=== PATIENT | male | born 1990 | race Caucasian/White ===

== ENCOUNTER 2017-10-28 11:31 | Emergency (ER) | payer OTHER, SELFPAY ==
[2017-10-28 11:38] VITALS: BP 142/90; PULSE 72; RESP 18; TEMP 36.6; O2SAT 96; BMI 31.4
--- NOTE | 2017-10-28 12:04 | ED.EYEPROB ---
HPI - Eye Problem <RAMANDEEP Wilkes - Last Filed: 10/28/17 19:48> General Chief complaint: Eye Problems Stated complaint: Scratched left eye Time Seen by Provider: 10/28/17 11:51 History of Present Illness HPI Narrative: 26-year-old healthy male here for complaint of discomfort to left eye after accidentally pop and has only with the handle of a pain shot per earlier today. 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 He denies any visual changes. He reports his immunizations are up-to-date. He reports that his eye has been watering since this happened. He denies any other concerns or complaints. MD chief complaint: eye pain Related Data Previous Rx's Medication Instructions Recorded polymyxin B sulf-trimethoprim 1 drop EYE-LEFT QID #10 ml 10/28/17 [Polytrim] erythromycin 0.5 inch EYE-LEFT QHS 10 Days gram 10/29/17 hydrocodone-acetaminophen [[place]] 1 tab PO QHS 7 Days #7 tab 10/29/17 Allergies Allergy/AdvReac Type Severity Reaction Status Date / Time No Known Drug Allergies Allergy Verified 10/28/17 13:37 Review of Systems <RAMANDEEP Wilkes - Last Filed: 10/28/17 19:48> Constitutional Denies chills, Denies fever(s), Denies lethargy and Denies weakness Eyes Reports irritation ENT Ears, Nose, Mouth, and Throat: Denies change in voice, Denies neck pain and Denies sore throat Cardiovascular Denies dyspnea and Denies dyspnea on exertion Respiratory Denies cough, Denies dyspnea, Denies dyspnea on exertion and Denies wheezing Gastrointestinal Gastrointestinal: Denies abdominal pain, Denies change in bowel habits, Denies diarrhea, Denies nausea and Denies vomiting Genitourinary Denies hematuria, Denies flank pain, Denies urinary incontinence and Denies urinary urgency Musculoskeletal Denies neck pain Integumentary/Breasts Denies pruritus, Denies erythema, Denies rash and Denies wounds Neurologic Denies weakness Allergic/Immunologic Denies wheezing Exam <RAMANDEEP Wilkes - Last Filed: 10/28/17 19:48> Initial Vital Signs Initial Vital Signs: Vital Signs Temperature 97.8 F 10/28/17 11:38 Pulse Rate 72 10/28/17 11:38 Respiratory Rate 18 10/28/17 11:38 Blood Pressure 142/90 H 10/28/17 11:38 Pulse Oximetry 96 10/28/17 11:38 Const General: cooperative and well developed Nutritional Appearance: well nourished Orientation: alert, awake, oriented x3 and not confused [facility] Mouth: oral mucosae normal and moist mucous membranes Eyes Cornea: fluorescein used Pupils: PERRL EOM: EOM intact bilaterally Direct ophthalmoscopy: normal light reflex Other: Left eye with injected sclera. Fluorescein exam shows a corneal abrasion across the front of. No foreign bodies. Orbit is intact. Visual acuity intact. Resp Effort & Inspection: normal respiratory effort, able to speak in complete sentences, no respiratory distress and no use of accessory muscles Auscultation: clear to auscultation bilaterally, no rales, no rhonchi and no wheezes Cardio Rate: regular rate Rhythm: regular rhythm Heart Sounds: no click, no gallops, no murmurs and no rubs Skin General: no rashes or lesions noted, No jaundice and No petechiae <Merrill Neville DO - Last Filed: 11/02/17 20:46> Initial Vital Signs Initial Vital Signs: Vital Signs Temperature 97.8 F 10/28/17 11:38 Pulse Rate 72 10/28/17 11:38 Respiratory Rate 18 10/28/17 11:38 Blood Pressure 142/90 H 10/28/17 11:38 Pulse Oximetry 96 10/28/17 11:38 Course <RAMANDEEP Wilkes - Last Filed: 10/28/17 19:48> Orders Ordered: Discontinued Medications Proparacaine HCl (Parcaine 0.5% Ophth Rfida) 1 drops EYE-LEFT NOW ONE Stop: 10/28/17 13:31 Last Admin: 10/28/17 13:32 Dose: 2 drop Vital Signs - 8 hr 10/28/17 12:58 10/28/17 13:17 Temperature 98.4 F Pulse Rate 70 64 Respiratory Rate 14 18 Blood Pressure 124/64 H Blood Pressure [Right Arm] 136/78 H Pulse Oximetry 98 100 <DO Maida Mac Last Filed: 11/02/17 20:46> Orders Ordered: Discontinued Medications Proparacaine HCl (Parcaine 0.5% Ophth Frida) 1 drops EYE-LEFT NOW ONE Stop: 10/28/17 13:31 Last Admin: 10/28/17 13:32 Dose: 2 drop Vital Signs - 8 hr 10/28/17 12:58 10/28/17 13:17 Temperature 98.4 F Pulse Rate 70 64 Respiratory Rate 14 18 Blood Pressure 124/64 H Blood Pressure [Right Arm] 136/78 H Pulse Oximetry 98 100 MDM - Eye Problem <RAMANDEEP Wilkes - Last Filed: 10/28/17 19:48> Medical Records Normal visual acuity. Fluorescein exam shows corneal abrasion. No foreign bodies. Orb is intact. He is placed on Polytrim. [id number] Tylenol Motrin as needed for any discomfort. Follow up primary care provider. Return emergency room for any worsening symptoms. Discharge Plan Departure Patient Disposition: Home, Self-Care Clinical Impression: Corneal abrasion Discharge Date/Time: 10/28/17 13:18 Interventions: ED Discharge Assessment Last Done: 10/28/17 13:17 Instructions: DI for Corneal Abrasion Activity Restrictions/Additional Instructions: Exam shows that you have an abrasion to her left cornea. This should heal on its own over the next few days. You have been placed on an antibiotic to prevent infection use as directed. Use [id number] Tylenol or Motrin as needed for any discomfort. Follow up with her primary care provider. Return emergency room for any worsening symptoms. Prescriptions: New polymyxin B sulf-trimethoprim [Polytrim] 10,000 unit- 1 mg/mL drops 1 drop EYE-LEFT QID Qty: 10 RF: 0 No Action hydrocodone-acetaminophen [[place]] 10-325 mg tablet 1 tab PO QHS 7 Days Qty: 7 RF: 0 erythromycin 5 mg/gram (0.5 %) ointment 0.5 inch EYE-LEFT QHS 10 Days RF: 0 Referrals: [facility] [Provider Group] <Merrill Neville DO - Last Filed: 11/02/17 20:46> Cosign ED Attending Lanaature Attestation: I was immediately available in the department for consultation. Documentation has been reviewed. I agree with assessment and plan.
--- NOTE | 2017-10-28 12:32 | ED_ITS ---
HPI - Eye Problem <RAMANDEEP Wilkes - Last Filed: 10/28/17 19:48> General Chief complaint: Eye Problems Stated complaint: Scratched left eye Time Seen by Provider: 10/28/17 11:51 History of Present Illness HPI Narrative: 26-year-old healthy male here for complaint of discomfort to left eye after accidentally pop and has only with the handle of a pain shot per earlier today. 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 He denies any visual changes. He reports his immunizations are up-to- date. He reports that his eye has been watering since this happened. He denies any other concerns or complaints. MD chief complaint: eye pain Related Data Previous Rx's Medication Instructions Recorded polymyxin B sulf-trimethoprim 1 drop EYE-LEFT QID #10 ml 10/28/17 [Polytrim] erythromycin 0.5 inch EYE-LEFT QHS 10 Days gram 10/29/17 hydrocodone-acetaminophen [[place]] 1 tab PO QHS 7 Days #7 tab 10/29/17 Allergies Allergy/AdvReac Type Severity Reaction Status Date / Time No Known Drug Allergies Allergy Verified 10/28/17 13:37 Review of Systems <RAMANDEEP Wilkes - Last Filed: 10/28/17 19:48> Constitutional Denies chills, Denies fever(s), Denies lethargy and Denies weakness Eyes Reports irritation ENT Ears, Nose, Mouth, and Throat: Denies change in voice, Denies neck pain and Denies sore throat Cardiovascular Denies dyspnea and Denies dyspnea on exertion Respiratory Denies cough, Denies dyspnea, Denies dyspnea on exertion and Denies wheezing Gastrointestinal Gastrointestinal: Denies abdominal pain, Denies change in bowel habits, Denies diarrhea, Denies nausea and Denies vomiting Genitourinary Denies hematuria, Denies flank pain, Denies urinary incontinence and Denies urinary urgency Musculoskeletal Denies neck pain Integumentary/Breasts Denies pruritus, Denies erythema, Denies rash and Denies wounds Neurologic Denies weakness Allergic/Immunologic Denies wheezing Exam <RAMANDEEP Wilkes - Last Filed: 10/28/17 19:48> Initial Vital Signs Initial Vital Signs: Vital Signs Temperature 97.8 F 10/28/17 11:38 Pulse Rate 72 10/28/17 11:38 Respiratory Rate 18 10/28/17 11:38 Blood Pressure 142/90 H 10/28/17 11:38 Pulse Oximetry 96 10/28/17 11:38 Const General: cooperative and well developed Nutritional Appearance: well nourished Orientation: alert, awake, oriented x3 and not confused [facility] Mouth: oral mucosae normal and moist mucous membranes Eyes Cornea: fluorescein used Pupils: PERRL EOM: EOM intact bilaterally Direct ophthalmoscopy: normal light reflex Other: Left eye with injected sclera. Fluorescein exam shows a corneal abrasion across the front of. No foreign bodies. Orbit is intact. Visual acuity intact. Resp Effort & Inspection: normal respiratory effort, able to speak in complete sentences, no respiratory distress and no use of accessory muscles Auscultation: clear to auscultation bilaterally, no rales, no rhonchi and no wheezes Cardio Rate: regular rate Rhythm: regular rhythm Heart Sounds: no click, no gallops, no murmurs and no rubs Skin General: no rashes or lesions noted, No jaundice and No petechiae <Merrill Neville DO - Last Filed: 11/02/17 20:46> Initial Vital Signs Initial Vital Signs: Vital Signs Temperature 97.8 F 10/28/17 11:38 Pulse Rate 72 10/28/17 11:38 Respiratory Rate 18 10/28/17 11:38 Blood Pressure 142/90 H 10/28/17 11:38 Pulse Oximetry 96 10/28/17 11:38 Course <RAMANDEEP Wilkes - Last Filed: 10/28/17 19:48> Orders Ordered: Discontinued Medications Proparacaine HCl (Parcaine 0.5% Ophth Frida) 1 drops EYE-LEFT NOW ONE Stop: 10/28/17 13:31 Last Admin: 10/28/17 13:32 Dose: 2 drop Vital Signs - 8 hr 10/28/17 12:58 10/28/17 13:17 Temperature 98.4 F Pulse Rate 70 64 Respiratory Rate 14 18 Blood Pressure 124/64 H Blood Pressure [Right Arm] 136/78 H Pulse Oximetry 98 100 <DO Maida Mac Last Filed: 11/02/17 20:46> Orders Ordered: Discontinued Medications Proparacaine HCl (Parcaine 0.5% Ophth Frida) 1 drops EYE-LEFT NOW ONE Stop: 10/28/17 13:31 Last Admin: 10/28/17 13:32 Dose: 2 drop Vital Signs - 8 hr 10/28/17 12:58 10/28/17 13:17 Temperature 98.4 F Pulse Rate 70 64 Respiratory Rate 14 18 Blood Pressure 124/64 H Blood Pressure [Right Arm] 136/78 H Pulse Oximetry 98 100 MDM - Eye Problem <RAMANDEEP Wilkes - Last Filed: 10/28/17 19:48> Medical Records Normal visual acuity. Fluorescein exam shows corneal abrasion. No foreign bodies. Orb is intact. He is placed on Polytrim. [id number] Tylenol Motrin as needed for any discomfort. Follow up primary care provider. Return emergency room for any worsening symptoms. Discharge Plan Departure Patient Disposition: Home, Self-Care Clinical Impression: Corneal abrasion Discharge Date/Time: 10/28/17 13:18 Interventions: ED Discharge Assessment Last Done: 10/28/17 13:17 Instructions: DI for Corneal Abrasion Activity Restrictions/Additional Instructions: Exam shows that you have an abrasion to her left cornea. This should heal on its own over the next few days. You have been placed on an antibiotic to prevent infection use as directed. Use [id number] Tylenol or Motrin as needed for any discomfort. Follow up with her primary care provider. Return emergency room for any worsening symptoms. Prescriptions: New polymyxin B sulf-trimethoprim [Polytrim] 10,000 unit- 1 mg/mL drops 1 drop EYE-LEFT QID Qty: 10 RF: 0 No Action hydrocodone-acetaminophen [[place]] 10-325 mg tablet 1 tab PO QHS 7 Days Qty: 7 RF: 0 erythromycin 5 mg/gram (0.5 %) ointment 0.5 inch EYE-LEFT QHS 10 Days RF: 0 Referrals: [facility] [Provider Group] <Merrill Neville DO - Last Filed: 11/02/17 20:46> Cosign ED Attending Lanaature Attestation: I was immediately available in the department for consultation. Documentation has been reviewed. I agree with assessment and plan.
[2017-10-28 12:58] VITALS: BP 136/78; PULSE 70; RESP 14; O2SAT 98
--- NOTE | 2017-10-28 13:09 | PC.NURSE ---
Pain free after eye drops;
[2017-10-28 13:17] VITALS: BP 124/64; PULSE 64; RESP 18; TEMP 36.9; O2SAT 100
[2017-10-28] MEDS: PROPARACAINE 0.5% OPHTH SOL 1 DROPS EYE-LEFT (13:32)
== END 2017-10-28 13:18 | disposition home or self-care (01) ==
PROVIDERS: Emergency Provider Nurse Practitioner Family
DX: S05.00XA Injury of conjunctiva and corneal abrasion without foreign body, unspecified eye, initial encounter (principal); X58.XXXA Exposure to other specified factors, initial encounter
CPT/HCPCS: 99282; 99283

== ENCOUNTER 2017-10-28 22:37 | Emergency (ER) | payer OTHER, SELFPAY ==
[2017-10-28 22:52] VITALS: BP 147/94; PULSE 74; RESP 18; TEMP 36.6; O2SAT 99
--- NOTE | 2017-10-28 23:08 | PC.NURSE ---
Pt had a corneal abrasion earlier this morning. Unable to go to sleep or close eyes due to constant pain in the eye. The eye is reddened and teary.
--- NOTE | 2017-10-29 00:39 | ED.EYEPROB ---
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 Patient reports that he was evaluated in the emergency department earlier today, prescribed antibiotic eyedrops, instructed to use ibuprofen and acetaminophen for pain. Patient had inadequate analgesia with ibuprofen and acetaminophen. Patient notes vision is at baseline. Patient does not wear contact lenses. Denies a history of glaucoma. Denies recent eye surgery. 2-3 M/S/F/Soc Hx. M/S/F/SocHx notable for: please see HPI; remainder reviewed with patient and in chart. ROS: Negative constitutional, eye, cardiovascular, pulmonary, GI, , MSK, skin, neurologic, psychiatric, endocrine unless noted in the HPI. Exam Gen: Pleasant, non-toxic appearing, resting comfortably. Head: Normocephalic, atraumatic. Eyes: Extraocular Structures: * OS without proptosis, periorbital erythema, swelling, warmth, or tenderness. Lids without edema, erythema, swelling. Nasolacrimal duct without swelling, warmth, erythema, or tenderness. EOMI without pain or nystagmus. * OD without proptosis, periorbital erythema, swelling, warmth, or tenderness. Lids without edema, erythema, swelling. Nasolacrimal duct without swelling, warmth, erythema, or tenderness. Visual acuity baseline per patient. EOMI without pain or nystagmus. Ocular Structures: OD - Visually normal. Visual acuity baseline per patient. OS * PEERLA (4 to 2 mm bilaterally) without pain on both afferent and efferent light stimulation. * EOMI without pain or nystagmus (bilaterally). * Vision: baseline per patient. * Slit lamp exam: lid everted and no foreign bodies or areas of swelling were seen. * No conjunctival injection, hemorrhage, chemosis, or discharge. No grossly visible hypopyon or hyphema. No anterior chamber cell or flare. * Patient had relief of pain with application of topical anesthetic. Fluorescein was applied with focal update appreciated from approximately 4 o???clock to 6 o???clock overlying the Iris, negative Siedel's sign. * OS 16 mmHg Mouth: Anterior oropharynx with MMM. No visible lesions on anterior or posterior oropharynx. Posterior oropharynx without swelling, exudate, erythema, lesions, or post-nasal drip, uvula midline. Nose: Nares without crusting or discharge. Bilateral lacrimal ducts without swelling, erythema, tenderness, or warmth. Neck: Neck supple Resp: Normal work of breathing without accessory muscle usage. Card: Extremities warm and well perfused. GI: Nondistended. : Deferred MSK: No visible deformities, strength and tone visually normal. Skin: Normal color with no visible lesions. Neuro: No facial asymmetry, moving all extremities without visible deficit. Heme: Deferred MDM Previous chart, nursing note, and vitals reviewed. 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 DDx: corneal abrasion, corneal foreign body, keratitis sicca, corneal ulcer, corneal perforation, traumatic iritis. Evaluation: Exam is consistent with the history demonstrated a corneal abrasion, no foreign bodies or globe rupture were appreciated. As the patient does not wear contact lenses erythromycin ointment was prescribed, the patient was instructed to use ibuprofen for baseline analgesia with a short course of [place] for breakthrough pain prescribed. Patient was instructed to follow-up within 48 hours unless symptoms are completely resolved. Return to care precautions were provided. Impression: corneal abrasion (please reference below for remainder of encounter information) Related Data Previous Rx's Medication Instructions Recorded polymyxin B sulf-trimethoprim 1 drop EYE-LEFT QID #10 ml 10/28/17 [Polytrim] Allergies Allergy/AdvReac Type Severity Reaction Status Date / Time No Known Drug Allergies Allergy Verified 10/28/17 13:37 [facility] Social History Smoking Status: Current some day smoker Exam Initial Vital Signs Initial Vital Signs: Vital Signs Temperature 97.9 F 10/28/17 22:52 Pulse Rate 74 10/28/17 22:52 Respiratory Rate 18 10/28/17 22:52 Blood Pressure 147/94 H 10/28/17 22:52 Pulse Oximetry 99 10/28/17 22:52 Course Vital Signs - 8 hr 10/28/17 22:52 Temperature 97.9 F Pulse Rate 74 Respiratory Rate 18 Blood Pressure 147/94 H Pulse Oximetry 99 Discharge Plan Departure Prescriptions: No Action polymyxin B sulf-trimethoprim [Polytrim] 10,000 unit- 1 mg/mL drops 1 drop EYE-LEFT QID Qty: 10 RF: 0
[2017-10-29 00:56] VITALS: BP 135/101; PULSE 61
[2017-10-29] MEDS: HYDROCODONE/ACET 5/325 PREPACK 1 BOTTLE MISC (00:58)
== END 2017-10-29 00:58 | disposition home or self-care (01) ==
PROVIDERS: Emergency Provider Emergency Medicine
DX: S05.00XA Injury of conjunctiva and corneal abrasion without foreign body, unspecified eye, initial encounter (principal)
CPT/HCPCS: 99282; 99283